=== PATIENT | male | born 1945 | race Caucasian/White ===

== ENCOUNTER → 2018-05-10 | Outpatient (REF) | payer MEDICARE ==
[2018-05-13 11:00] LABS: HEPATITIS C VIRUS ABY INDEX 0.1 INDEX (<0.8)
== END ==
LOC: M LAB REF 16:42
DX: L81.8 Other specified disorders of pigmentation (principal)
CPT/HCPCS: 86803

== ENCOUNTER 2018-12-26 08:56 | Day surgery (SDC) | payer MEDICARE ==
[~2018-12-26] VITALS: Ht 175.3 cm; Wt 97.1 kg
[~2018-12-26 08:56] MED LIST: ADVA115A INH; ATOR1TAB19 PO; LOSA50TA88 PO; NS 1,000 ML IV ONE; VENTAER
[2018-12-26] MEDS ORDERED: PROPOFOL 200 MG/20 ML VIAL As Ordered ONE (09:17)
[2018-12-26] MEDS ORDERED: LIDOCAINE 2% INJ 100 MG/5 ML SDV (FOR ANES.) As Ordered ONE (09:17)
--- NOTE | 2018-12-26 09:58 | ROOR ---
Patient Name: Isaiah Sparks Procedure Date: 12/26/2018 9:40 AM Date of : 1945 Age: 73 Room: [facility] Gender: Male Note Status: Finalized Procedure: Colonoscopy Indications: High risk colon cancer surveillance: Personal history of colonic polyps Providers: Chase Garcia Jr, MD Referring MD: Minna Balderas DO Requesting Provider: Medicines: Propofol per Anesthesia Complications: No immediate complications. Procedure: Pre-Anesthesia Assessment: - Prior to the procedure, a History and Physical was performed, and patient medications and allergies were reviewed. The patient is competent. The risks and benefits of the procedure and the sedation options and risks were discussed with the patient. All questions were answered and informed consent was obtained. Patient identification and proposed procedure were verified by the physician and the nurse in the pre-procedure area and in the procedure room. Mental Status Examination: alert and oriented. Airway Examination: normal oropharyngeal airway and neck mobility. Respiratory Examination: clear to auscultation. CV Examination: normal. ASA Grade Assessment: II - A patient with mild systemic disease. After reviewing the risks and benefits, the patient was deemed in satisfactory condition to undergo the procedure. The anesthesia plan was to use moderate sedation / analgesia (conscious sedation). Immediately prior to administration of medications, the patient was re-assessed for adequacy to receive sedatives. The heart rate, respiratory rate, oxygen saturations, blood pressure, adequacy of pulmonary ventilation, and response to care were monitored throughout the procedure. The physical status of the patient was re-assessed after the procedure. The Colonoscope was introduced through the anus and advanced to the cecum, identified by appendiceal orifice and ileocecal valve. The colonoscopy was performed without difficulty. The patient tolerated the procedure well. The quality of the bowel preparation was adequate. Findings: Multiple small and large-mouthed diverticula were found in the sigmoid colon. The rectum, recto-sigmoid colon, descending colon, transverse colon, ascending colon, cecum, appendiceal orifice and ileocecal valve appeared normal. Impression: - Diverticulosis in the sigmoid colon. - The rectum, recto-sigmoid colon, descending colon, transverse colon, ascending colon, cecum, appendiceal orifice and ileocecal valve are normal. - No specimens collected. Recommendation: - Discharge patient to home (ambulatory). - Repeat colonoscopy in 10 years for screening purposes. Chase Garcia MD Chase Garcia Jr, MD 12/26/2018 9:57:55 AM This report has been signed electronically. Number of Addenda: 0 Note Initiated On: 12/26/2018 9:40 AM Estimated Blood Loss: Estimated blood loss: none.
[2018-12-26 10:20] VITALS: BP 144/73
== END 2018-12-26 10:35 | disposition home or self-care (01) ==
LOC: M OPP 08:56
PROVIDERS: ATTEND Surgery
DX: K57.30 Diverticulosis of large intestine without perforation or abscess without bleeding (principal); Z86.010 Personal history of colon polyps

== ENCOUNTER → 2019-11-14 | Outpatient (REF) | payer MEDICARE ==
[~2019-11-14] MED LIST changes: -NS 1,000 ML IV ONE
[2019-11-14 14:19] LABS: FOLATE 12.5 NG/ML
== END ==
LOC: M LAB REF 12:46
PROVIDERS: ATTEND Internal Medicine
DX: F10.27 Alcohol dependence with alcohol-induced persisting dementia (principal)

== ENCOUNTER → 2020-05-19 | Outpatient (REF) | payer MEDICARE | LOC: M LAB REF 11:20 | PROVIDERS: ATTEND Internal Medicine | DX: F10.27 Alcohol dependence with alcohol-induced persisting dementia (principal); D51.9 Vitamin B12 deficiency anemia, unspecified ==

== ENCOUNTER 2020-08-14 19:33 | Emergency (ER) | payer MEDICARE ==
[~2020-08-14] VITALS: Ht 182.9 cm; Wt 91.1 kg
[2020-08-14 21:32] VITALS: BP 169/84
== END 2020-08-14 21:33 | disposition home or self-care (01) ==
LOC: M ED 19:33
DX: S80.11XA Contusion of right lower leg, initial encounter (principal); W22.8XXA Striking against or struck by other objects, initial encounter; Y92.099 Unspecified place in other non-institutional residence as the place of occurrence of the external cause; Y93.89 Activity, other specified; Y99.9 Unspecified external cause status; I10 Essential (primary) hypertension; E78.5 Hyperlipidemia, unspecified; J44.9 Chronic obstructive pulmonary disease, unspecified; Z79.899 Other long term (current) drug therapy

== ENCOUNTER → 2023-06-01 | Outpatient (CLI) | payer MEDICARE ==
[~2023-06-01] MED LIST changes: +ISOVUE-370 76% 100ML VIAL As Ordered ONE; +LOSA50TA28 PO; -LOSA50TA88 PO
== END ==
LOC: M RAD 10:53
PROVIDERS: ATTEND Internal Medicine
DX: R91.1 Solitary pulmonary nodule (principal)
CPT/HCPCS: 71260; Q9967